=== PATIENT | male | born 1990 | race Two or more races ===

== ENCOUNTER 2018-06-28 07:11 | Emergency (ER) | payer OTHER ==
[~2018-06-28] VITALS: Ht 172.7 cm; Wt 75.7 kg
[2018-06-28] MEDS ORDERED: IBUPROFEN 600 MG TABLET ONE (07:40)
--- NOTE | 2018-06-28 07:42 | NUR ---
mse completed, motrin admin, pt d/c'd home, aci/rx x2 given. pt got dressed ambulated w/o diff/took all belongings.
[2018-06-28 07:43] VITALS: BP 118/74
[2018-06-28] MEDS ORDERED: IBUPROFEN 600 MG TABLET PO ONE (07:45)
== END 2018-06-28 07:38 | disposition home or self-care (01) ==
LOC: ER 07:11
DX: J20.9 Acute bronchitis, unspecified (principal); R10.9 Unspecified abdominal pain
CPT/HCPCS: 99282; A4663